=== PATIENT | male | born 1980 | race Caucasian/White ===

== ENCOUNTER 2016-09-06 16:55 | Emergency (ER) | payer MEDICAID, OTHER ==
[~2016-09-06] VITALS: Ht 177.8 cm; Wt 81.6 kg
[2016-09-06 17:27] VITALS: BP 132/77
[2016-09-06] MEDS: HYDROcodone/APAP 5/325 MG 1 TAB TAB PO ONE (18:49)
[2016-09-06 19:40] VITALS: BP 131/75
== END 2016-09-06 19:45 | disposition home or self-care (01) ==
LOC: MED 16:55
DX: S93.402A Sprain of unspecified ligament of left ankle, initial encounter (principal); N47.6 Balanoposthitis; X58.XXXA Exposure to other specified factors, initial encounter; Y93.67 Activity, basketball; Y92.89 Other specified places as the place of occurrence of the external cause; Y99.8 Other external cause status
CPT/HCPCS: 73610; 81002; 99284

== ENCOUNTER 2016-12-12 22:54 | Emergency (ER) | payer OTHER ==
[~2016-12-12] VITALS: Ht 177.8 cm; Wt 81.6 kg
[2016-12-12 22:57] VITALS: BP 132/87
[2016-12-12] MEDS ORDERED: HYDROcodone/APAP 5/325 MG 1 TAB TAB PO ONE (23:15)
[2016-12-12] MEDS ORDERED: KETOROLAC 30 MG/ML VIAL IM ONE (23:15)
[2016-12-12 23:39] VITALS: BP 132/87
== END 2016-12-12 23:40 | disposition home or self-care (01) ==
LOC: MED 22:54
DX: S93.401A Sprain of unspecified ligament of right ankle, initial encounter (principal); I10 Essential (primary) hypertension; X50.1XXA Overexertion from prolonged static or awkward postures, initial encounter; Y93.89 Activity, other specified; Y92.480 Sidewalk as the place of occurrence of the external cause; Y99.8 Other external cause status
CPT/HCPCS: 73610; 73620; 96372; 99284; J1885; Q0092

== ENCOUNTER 2017-05-10 22:02 | Emergency (ER) | payer OTHER ==
[~2017-05-10] VITALS: Ht 180.3 cm; Wt 86.7 kg
[2017-05-10 22:03] VITALS: BP 140/90
--- NOTE | 2017-05-10 22:12 | NUR ---
to lobbya/w bed, claude perez ermd noted
--- NOTE | 2017-05-10 22:12 | NUR ---
nasal swab for influ a & b done and sent to lab.
--- NOTE | 2017-05-10 22:45 | NUR ---
PT TAKEN TO OF2
--- NOTE | 2017-05-10 22:57 | NUR ---
PATIENT PRESENTS TO ED WITH C/O fever, runnynose,bodyaches, h/a for 2 days . PT DENIES N/V/D; SKIN IS PINK/WARM/DRY; AAOX4 WITH EVEN AND STEADY GAIT; LUNGS CLEAR BL; HR EVEN AND REGULAR; PT DENIES ANY CP, SOB, OR COUGH AT THIS TIME; PATIENT STATES PAIN OF 10/10 AT THIS TIME; VSS; PATIENT POSITIONED FOR COMFORT; HOB ELEVATED; BEDRAILS UP X2; BED DOWN. ER MD MADE AWARE OF PT STATUS.
[2017-05-10 23:27] VITALS: BP 136/87
--- NOTE | 2017-05-10 23:27 | NUR ---
Patient discharged with v/s stable. Written and verbal after care instructions given and explained. Patient alert, oriented and verbalized understanding of instructions. Ambulatory with steady gait. All questions addressed prior to discharge. ID band removed. Patient advised to follow up with PMD. Rx of NAPROXEN 500MG AND PHENERGAN WITH CODEIND SYR given. Patient educated on indication of medication including possible reaction and side effects. Opportunity to ask questions provided and answered.
== END 2017-05-10 23:27 | disposition home or self-care (01) ==
LOC: MED 22:02
DX: J02.8 Acute pharyngitis due to other specified organisms (principal); I10 Essential (primary) hypertension
CPT/HCPCS: 36415; 87804; 99284

== ENCOUNTER 2017-07-31 20:27 | Emergency (ER) | payer OTHER ==
[~2017-07-31] VITALS: Ht 177.8 cm; Wt 86.6 kg
[2017-07-31 20:35] VITALS: BP 150/95
[2017-07-31] MEDS ORDERED: cefTRIAXone 1,000 MG in LIDOCAINE MPF 1% - **ER/OR** 2.1 ML IM ONE (20:55)
[2017-07-31 21:27] VITALS: BP 146/90
== END 2017-07-31 21:27 | disposition home or self-care (01) ==
LOC: MED 20:27
DX: J32.9 Chronic sinusitis, unspecified (principal); J11.1 Influenza due to unidentified influenza virus with other respiratory manifestations; I10 Essential (primary) hypertension
CPT/HCPCS: 81002; 96372; 99283; J0696; J2001

== ENCOUNTER 2017-09-26 18:06 | Emergency (ER) | payer OTHER ==
[~2017-09-26] VITALS: Ht 177.8 cm; Wt 88.9 kg
[2017-09-26 18:38] VITALS: BP 153/105
--- NOTE | 2017-09-26 18:43 | NUR ---
patient to lobby awaiting available room. gcs=15 with steady gait. patient denies any cp, sob, dizziness, headache, or changes in vision.
--- NOTE | 2017-09-26 19:58 | NUR ---
Khadar person in [facility] - 09/26/17 at 1959 by YOVANNY PT TAKEN TO BED 3
--- NOTE | 2017-09-26 19:59 | NUR ---
PT TAKEN TO CHAIR E
[2017-09-26] MEDS ORDERED: KETOROLAC 30 MG/ML VIAL IM ONE (20:00)
[2017-09-26] MEDS ORDERED: MORPHINE SULFATE 4 MG/ML SYR IM ONE (20:00)
--- NOTE | 2017-09-26 20:00 | NUR ---
36 Y/O M W/C/O R LOWER TOOTHACHE X YESTERDAY.PT STATES HIS PAIN IS 10/10. NO MED HX, NO OTHER S/S OF DISTRESS NOTED AT THE MOMENT.ER MADE AWARE.
[2017-09-26 20:45] VITALS: BP 139/92
--- NOTE | 2017-09-26 20:45 | NUR ---
Patient discharged with v/s stable. Written and verbal after care instructions given and explained. Patient alert, oriented and verbalized understanding of instructions. Ambulatory with steady gait. All questions addressed prior to discharge. ID band removed. Patient advised to follow up with PMD. Rx of NORCO, PENICILLIN, AND NAPROSYN given. Patient educated on indication of medication including possible reaction and side effects. Opportunity to ask questions provided and answered.
== END 2017-09-26 20:45 | disposition home or self-care (01) ==
LOC: MED 18:06
DX: K08.89 Other specified disorders of teeth and supporting structures (principal); I10 Essential (primary) hypertension
CPT/HCPCS: 96372; 99284; J1885; J2270

== ENCOUNTER 2018-01-16 11:54 | Emergency (ER) | payer MEDICAID, OTHER ==
[~2018-01-16] VITALS: Ht 180.3 cm; Wt 87.7 kg
[2018-01-16 12:01] VITALS: BP 126/81
--- NOTE | 2018-01-16 12:08 | NUR ---
Patient ambulated to bed 9 at this time.
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
--- NOTE | 2018-01-16 13:30 | NUR ---
PT. SITTING IN BED, RR EVEN AND UNLABORED. VSS
[2018-01-16 14:00] VITALS: BP 120/80
--- NOTE | 2018-01-16 14:13 | NUR ---
PATIENT LEFT WITHOUT BEING SEEN BY DR. RUSSELL . NO FURTHER CARE PROVIDED FOR PATIENT.
== END 2018-01-16 14:13 | disposition left against medical advice (07) ==
LOC: MED 11:54
DX: R21 Rash and other nonspecific skin eruption (principal); B07.9 Viral wart, unspecified; Z53.21 Procedure and treatment not carried out due to patient leaving prior to being seen by health care provider
CPT/HCPCS: 99281

== ENCOUNTER 2018-01-17 08:43 | Emergency (ER) | payer SELFPAY ==
[~2018-01-17] VITALS: Ht 180.3 cm; Wt 89.8 kg
[2018-01-17 08:55] VITALS: BP 134/90
[2018-01-17 10:05] VITALS: BP 135/89
[2018-01-19 06:22] LABS: CHLAMYDIA TRACHOMATIS AMP DNA Negative (Negative)
== END 2018-01-17 10:05 | disposition home or self-care (01) ==
LOC: MED 08:43
DX: H10.9 Unspecified conjunctivitis (principal); I10 Essential (primary) hypertension
CPT/HCPCS: 36415; 87491; 99283

== ENCOUNTER 2018-04-11 16:32 | Emergency (ER) | payer OTHER ==
[~2018-04-11] VITALS: Ht 177.8 cm; Wt 81.6 kg
[2018-04-11 16:36] VITALS: BP 142/77
[2018-04-11] MEDS ORDERED: LORazepam 1 MG TAB PO ONE (16:50)
[2018-04-11] MEDS ORDERED: IBUPROFEN 800 MG TAB PO ONE (16:50)
[2018-04-11 17:18] VITALS: BP 140/73
== END 2018-04-11 17:18 ==
LOC: MED 16:32
DX: S20.419A Abrasion of unspecified back wall of thorax, initial encounter (principal); I10 Essential (primary) hypertension; W86.8XXA Exposure to other electric current, initial encounter; Y93.89 Activity, other specified; Y92.89 Other specified places as the place of occurrence of the external cause; Y99.8 Other external cause status
CPT/HCPCS: 90471; 90715; 99283

== ENCOUNTER 2018-04-23 18:47 | Emergency (ER) | payer OTHER ==
[~2018-04-23] VITALS: Ht 175.3 cm; Wt 83.1 kg
[2018-04-23 18:55] VITALS: BP 140/105
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
[2018-04-23] MEDS ORDERED: KETOROLAC 60 MG/2 ML VIAL IM ONE (19:15)
--- NOTE | 2018-04-23 19:34 | NUR ---
Patient being evaluated by physician at bedside.
--- NOTE | 2018-04-23 20:34 | NUR ---
R WRIST AND FOREARM SPLINT APPLIED TO PT. +CSM
[2018-04-23 20:38] VITALS: BP 140/105
--- NOTE | 2018-04-23 20:38 | NUR ---
Patient discharged with v/s stable. Written and verbal after care instructions given and explained. Patient alert, oriented and verbalized understanding of instructions. Ambulatory with steady gait. All questions addressed prior to discharge. ID band removed. Patient advised to follow up with PMD. Rx of Motrin and [place] given. Patient educated on indication of medication including possible reaction and side effects. Opportunity to ask questions provided and answered.
== END 2018-04-23 20:38 | disposition home or self-care (01) ==
LOC: MED 18:47
DX: M79.642 Pain in left hand (principal); M79.641 Pain in right hand; M25.562 Pain in left knee; M25.561 Pain in right knee; M25.532 Pain in left wrist; M25.531 Pain in right wrist; M25.522 Pain in left elbow; M25.521 Pain in right elbow; I10 Essential (primary) hypertension
CPT/HCPCS: 29125; 73130; 73560; 96372; 99283; J1885; Q0092

== ENCOUNTER 2021-02-22 22:14 | Emergency (ER) | payer SELFPAY ==
[~2021-02-22] VITALS: Ht 177.8 cm; Wt 85.7 kg
[2021-02-22 22:23] VITALS: BP 137/76
--- NOTE | 2021-02-22 22:28 | NUR ---
PT AMBULATED TO LOBBY TO A.W BED. PT UNABLE TO VOID AT THIS TIME. URINE CUP PROVIDED.
--- NOTE | 2021-02-22 23:57 | NUR ---
PT CALLED, NO RESPONSE FROM PT.
--- NOTE | 2021-02-23 00:08 | NUR ---
CALLED PT A SECOND TIME NO RESPONSE
--- NOTE | 2021-02-23 00:10 | NUR ---
PT CALLED IN LOBBY AND OUTSIDE WITH NO ANSWER. PATIENT LEFT WITHOUT BEING SEEN BY DR. DE SANTIAGO. NO FURTHER CARE PROVIDED FOR PATIENT.
== END 2021-02-23 00:10 | disposition left against medical advice (07) ==
LOC: MED 22:14
DX: R30.9 Painful micturition, unspecified (principal); Z53.21 Procedure and treatment not carried out due to patient leaving prior to being seen by health care provider

== ENCOUNTER 2021-10-19 12:49 | Emergency (ER) | payer SELFPAY ==
[~2021-10-19] VITALS: Ht 177.8 cm; Wt 84.1 kg
[2021-10-19 12:55] VITALS: BP 135/87
--- NOTE | 2021-10-19 12:59 | NUR ---
PT AMBULATED TO ER BED 3
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
--- NOTE | 2021-10-19 13:25 | NUR ---
Patient discharged with v/s stable. Written and verbal after care instructions ABOUT TINNITUS given and explained. Patient verbalized understanding. Ambulatory with steady gait. All questions addressed prior to discharge. Advised to follow up with PMD.
== END 2021-10-19 13:25 | disposition home or self-care (01) ==
LOC: MED 12:49
DX: H93.13 Tinnitus, bilateral (principal); I10 Essential (primary) hypertension
CPT/HCPCS: 99281